=== PATIENT | male | born 1955 | race Caucasian/White ===

== ENCOUNTER → 2019-06-03 09:33 | Outpatient (CLI) | payer MEDICARE, BC, SELFPAY ==
--- NOTE | 2019-06-03 09:45 | MR_ITS ---
PROCEDURE: MR LUMBAR SPINE WO/W CON CLINICAL INDICATION: LOW BACK PAIN, IRON DEFICIENCY ANEMIA Low back pain with limited range of motion COMPARISON: No exams were available for comparison TECHNIQUE: Standard multiplanar multiecho sequences are performed without contrast. 3-D MIP and myelographic images are also rendered and reviewed FINDINGS: There is normal alignment. The spinal cord ends at the T12-L1 level. There is diffuse heterogeneous signal intensity the bony elements consistent with heterogeneous red marrow replacement. T12-L1: Unremarkable. L1-L2: Unremarkable. L2-L3: Unremarkable. L3-L4: Unremarkable. L4-5: Minimal bulging disc with mild facet ligamentum hypertrophy with mild bilateral lateral recess and foraminal narrowing. L5-S1: Degenerate disc disease with bulging disc along with mild facet and ligamentum hypertrophy. There is moderate to severe right foraminal narrowing and [id number] left foraminal narrowing. The decreased T1 signal is present involving the anterior and superior aspect of the L5 vertebral body. There is a slightly curvilinear area of decreased T2 signal transverse in nature along the anterior and superior aspect of L5 vertebral body suggesting a nondisplaced fracture. There is slight increased T2 signal in this region and there is very minimal decrease in height anteriorly of L5. No enhancing lesions are evident. IMPRESSION: 1. There is diffuse heterogeneous signal intensity of the lower thoracic spine, lumbar spine and sacrum and ilium. This may be related to heterogeneous red marrow replacement. Hematopoietic disorders could cause this finding. Please correlate with laboratory and clinical findings. 2. L4-5: Minimal bulging disc with mild facet ligamentum hypertrophy with mild bilateral lateral recess and foraminal narrowing. 3. L5-S1: Degenerate disc disease with bulging disc along with mild facet and ligamentum hypertrophy. There is moderate to severe right foraminal narrowing and [id number] left foraminal narrowing. The decreased T1 signal is present involving the anterior and superior aspect of the L5 vertebral body. 4. There is a slightly curvilinear area of decreased T2 signal transverse in nature along the anterior and superior aspect of L5 vertebral body suggesting a nondisplaced fracture. There is slight increased T2 signal in this region and there is very minimal decrease in height anteriorly of L5. 5. No extruded herniated disc or canal stenosis Dictated by: Dennis Doyle MD 06/04/2019 09:54 Electronically signed by Dennis Doyle MD in [place] 06/04/2019 09:54
== END ==
PROVIDERS: Visit Provider Internal Medicine Hematology & Oncology
DX: M54.5 Low back pain (principal); D50.9 Iron deficiency anemia, unspecified
CPT/HCPCS: 72158; 76376; A9576

== ENCOUNTER → 2019-11-11 14:08 | Outpatient (CLI) | payer MEDICARE, BC, SELFPAY ==
--- NOTE | 2019-11-11 14:16 | XR_ITS ---
PROCEDURE: XR HIP RT 2-3V W/PELVIS CLINICAL INDICATION: IRON DEFICIENCY ANEMIA, UNSPECIFIED COMPARISON: CR KUB KUB (SINGLE VIEW) from 10/19/2013 MR MR LUMBAR SPINE WO/W CON from 06/03/2019 FINDINGS: There is diffuse increased sclerosis of the left hemipelvis including the left aspect of the sacrum, ilium, ischemia M, superior and inferior pubic ramus, and the left proximal femur. This had a similar appearance on a prior KUB of 10/19/2013 and could be related to Paget's disease or stable prostate metastasis. No other significant anomalies are evident. Surgical clips are present along the left iliac fossa. No acute finding of the right hip. There is a small bone island in the right femoral head. There are multiple small calcific densities in the soft tissues of the right hip. IMPRESSION: No change diffuse sclerosis of the left hemipelvis and proximal femur which could be due to Paget's disease or prostate metastasis. Unremarkable right hip Dictated by: Dennis Doyle MD 11/11/2019 14:53 Dennis Doyle MD in [place] 11/11/2019 14:53
== END ==
PROVIDERS: PCP Family Medicine; Visit Provider Internal Medicine Hematology & Oncology
DX: M25.551 Pain in right hip (principal); R10.2 Pelvic and perineal pain; D50.9 Iron deficiency anemia, unspecified
CPT/HCPCS: 73502

== ENCOUNTER → 2019-12-08 08:22 | Outpatient (CLI) | payer MEDICARE, BC, SELFPAY ==
--- NOTE | 2019-12-08 08:25 | MR_ITS ---
PROCEDURE: MR LUMBAR SPINE WO/W CON CLINICAL INDICATION: BACK PAIN HX MULTIPLE MYELOMA. LBP WITH RT SIDED HIP PAIN. NUMBNESS ON ANTERIOR ASPECT OF THIGH TO KNEE. COMPARISON: MR MR LUMBAR SPINE WO/W CON from 06/03/2019 TECHNIQUE: Standard multiplanar multiecho sequences are performed without contrast. 3-D MIP and myelographic images are also rendered and reviewed FINDINGS: There is normal alignment. The spinal cord ends at the L1 level. There is diffuse heterogeneous bone marrow signal intensity of the lumbar and sacral spine similar to the previous exam consistent with heterogeneous red marrow replacement. This may be seen with Bruning proliferated processes. T11-T12: Mild degenerative disc disease with minimal bulging disc with mild facet hypertrophic change and mild bilateral lateral recess narrowing. T12-L1 and L1-L2 have an unremarkable appearance. L2-L3: Unremarkable. L3-L4: Unremarkable. L4-5: Mild concentric bulging disc with mild facet ligamentum hypertrophy and mild bilateral lateral recess and foraminal narrowing not significantly changed. L5-S1: Degenerative disc disease with bulging disc with facet and ligamentum hypertrophy with moderate right-sided foraminal narrowing and mild left-sided foraminal narrowing. This is not significantly changed. There is slight decrease in height of the L5 vertebral body. On the edge of the images there is an infiltrative process involving the S1-S2 vertebral segments with some mild expansion posteriorly which has developed since the previous exam. This is imaged only in the sagittal plane isointense on T1 and T2 worrisome for an infiltrative process such as multiple myeloma or plasmacytoma. In addition, there is decrease T1 and slight increased T2 signal involving the S1 segment centrally and on the right as well as diffuse heterogeneous signal intensity of the ilium on both sides consistent with multiple myeloma. The extent of the involvement of the pelvis is not adequately evaluated on this study. IMPRESSION: 1. L4-5: Mild concentric bulging disc with mild facet ligamentum hypertrophy and mild bilateral lateral recess and foraminal narrowing not significantly changed. 2. L5-S1: Degenerative disc disease with bulging disc with facet and ligamentum hypertrophy with moderate right-sided foraminal narrowing and mild left-sided foraminal narrowing. This is not significantly changed. There is slight decrease in height of the L5 vertebral body. 3. Extensive signal alteration with infiltration of the sacrum and ilium on both sides as described above consistent with multiple myeloma. This is incompletely imaged. CT of the pelvis may provide further evaluation for better bony delineation and the extent of involvement if clinically warranted. 4. Heterogeneous signal intensity of the lumbar spine which does not appear significantly changed and may be related to heterogeneous red marrow replacement which may be seen with myelo proliferative process.. Dictated by: Dennis Doyle MD 12/09/2019 08:51 Dennis Doyle MD in [place] 12/09/2019 08:51
== END ==
PROVIDERS: PCP Family Medicine; Visit Provider Internal Medicine Hematology & Oncology
DX: M54.5 Low back pain (principal); D50.9 Iron deficiency anemia, unspecified
CPT/HCPCS: 72158; 76376; A9576

== ENCOUNTER 2020-01-10 11:06 | Emergency (ER) | payer MEDICARE, BC, SELFPAY ==
[2020-01-10] VITALS (7 sets, daily range): BP systolic 91–131; BP diastolic 53–83; PULSE 52–73; RESP 18; TEMP 36.7; O2SAT 91–97; BMI 33.0
--- NOTE | 2020-01-10 11:21 | HMH.EDGENADL ---
ED Disposition Clinical Impression: Hip pain, right Disposition: Home, Self-Care Condition on Discharge: Fair Instructions: DI for Hip Pain Additional Instructions: CT of the lumbar spine as well as pelvis were done and the report showed the following diffuse bone marrow infiltration of the sacrum and right hemipelvis consistent with patient's history of multiple myeloma; 2. bilateral sacral insufficiency fractures MRI may confirm. 3. diffuse osteosclerosis of the left hemipelvis and femur consistent with Paget's disease there is also underlying bone marrow infiltration involving these areas. 4 no definite hip fracture there is some minimal cortical irregularity of the right femoral neck this could be related to vascular channel MRI may confirm 5.bulging disc at L4-L5 and L5-S1 heterogenous somewhat corrugated appearance of L5 suspicious for multiple myeloma involvement. spoke to Dr. Jorge Rojas radiation oncologist and he advised that you may be discharged home and Dr. Jorge Rojas will follow up with you. We are giving you copies of the CDs in both these cases Time of Disposition: 13:18 - Critical Care Critical Care Time: No Attestation: On , the high probability of a clinically significant, sudden or life threatening deterioration of the following system(s) required my full and direct attention, intervention and personal management. The time I documented below is in addition to time spent performing reported procedures but includes the following listed in this critical care notation. Medical Decision Making - Medical Records Medical records reviewed: Yes: I reviewed the patient's medical records. MR Comment: male here with a complaint that his right hip and back hurt his he has a history of multiple myeloma and he was advised by his primary care physician to come to the ER as they are concerned that this could be a pathological fracture. CT of the patient's lumbar spine as well as pelvis were done and the report showed the following diffuse bone marrow infiltration of the sacrum and right hemipelvis consistent with patient's history of multiple myeloma;. 2. bilateral sacral insufficiency fractures MRI may confirm. 3. diffuse osteosclerosis of the left hemipelvis and femur consistent with Paget's disease there is also underlying bone marrow infiltration involving these areas. 4 no definite hip fracture there is some minimal cortical irregularity of the right femoral neck this could be related to vascular channel MRI may confirm 5.bulging disc at L4-L5 and L5-S1 heterogenous somewhat corrugated appearance of L5 suspicious for multiple myeloma involvement. i spoke to Dr. Jorge Rojas patient's radiation oncologist and he advised that the patient may be discharged home and Dr. Jorge Rojas will follow up with him patient was given copies of the CDs in both these cases - Yony Inquiry Pt receiving controlled substance: No Yony was queried for this patient: No Vital Signs: 01/10/20 11:09 01/10/20 11:36 01/10/20 12:06 Temperature 98.1 F Temperature Source Oral Pulse Rate [Right Radial] 73 64 56 L Respiratory Rate 18 Blood Pressure [Right Arm] 131/83 91/58 L 93/53 L Blood Pressure Mean [Right Arm] 99 69 66 Blood Pressure Source [Right Arm] Automatic Cuff Automatic Cuff Automatic Cuff Blood Pressure Position [Right Arm] Sitting Sitting Sitting 02 Sat by Pulse Oximetry 95 93 L 91 L Oxygen Delivery Method Room Air Room Air Room Air 01/10/20 12:30 Temperature Temperature Source Pulse Rate [Right Radial] 52 L Respiratory Rate Blood Pressure [Right Arm] 92/57 L Blood Pressure Mean [Right Arm] 68 Blood Pressure Source [Right Arm] Automatic Cuff Blood Pressure Position [Right Arm] Sitting 02 Sat by Pulse Oximetry 91 L Oxygen Delivery Method Room Air Orders (Tests/Meds): ED MEDICATIONS Discontinued Medications Generic Name Dose Route Start Last Admin Trade Name Freq PRN Reason Stop Dose Adm
--- NOTE | 2020-01-10 11:23 | PC.NURSE ---
pt going to radiology
--- NOTE | 2020-01-10 11:24 | PC.NURSE ---
Pt to rad.
--- NOTE | 2020-01-10 11:28 | CT_ITS ---
PROCEDURE: CT PELVIS WO CON CLINICAL INDICATION: pain Multiple myeloma, popping right hip with low back pain COMPARISON: CR KUB KUB (SINGLE VIEW) from 10/19/[address] LUMBAR SPINE WO CON from 01/10/2020 TECHNIQUE: Axial images obtained with sagittal and coronal reformats. All CT scans at the facility use one or more dose reduction, viz: automated exposure control, ma/kV adjustment per patient size (including targeted exams where dose is matched to indication, i.e. head), or iterative reconstruction technique. FINDINGS: There is diffuse marrow infiltration the sacrum and right hemipelvis.. There is diffuse sclerotic appearance of the left hemipelvis with scattered areas of soft tissue infiltration as well.. There is an insufficiency fracture involving the anterior aspect of the sacrum on both sides. No definite femoral neck fracture. There is a small area of cortical irregularity involving the right femoral neck superiorly and laterally which may only be related to a vascular channel. If pain persists, would consider confirmation with MRI as the diffuse osteopenia makes interpretation somewhat difficult to evaluate for a hairline fracture. The there is diffuse osteosclerosis of the left femur with intramedullary areas of increased soft tissue density. This has a similar appearance involving the left ilium ischium and pubis. The osteosclerosis has been present since 10/19/2013. IMPRESSION: 1. Diffuse bone marrow infiltration of the sacrum and right hemipelvis consistent with patient's history of multiple myeloma. 2. Bilateral sacral insufficiency fractures. MRI may confirm. 3. Diffuse osteosclerosis of the left hemipelvis and femur consistent with Paget's disease. There is also underlying bone marrow infiltration involving of these areas 4. No definite hip fracture. There is some minimal cortical irregularity of the right femoral neck. This could be related to vascular channel. MRI may confirm if clinically desired. Dictated by: Dennis Doyle MD 01/10/2020 12:15 Dennis Doyle MD in [place] 01/10/2020 12:15
--- NOTE | 2020-01-10 11:28 | CT_ITS ---
PROCEDURE: CT LUMBAR SPINE WO CON CLINICAL HISTORY: pain Pain, multiple myeloma COMPARISON: No exams were available for comparison TECHNIQUE: Axial images obtained with sagittal and coronal reformats. All CT scans at the facility use one or more dose reduction, viz: automated exposure control, ma/kV adjustment per patient size (including targeted exams where dose is matched to indication, i.e. head), or iterative reconstruction technique. FINDINGS: There is mild diffuse osteopenia of the generalized bony structures. This may be seen with diffuse multiple myeloma. Bulging disc is present at L4-L5 with facet and ligamentum hypertrophy with bilateral lateral recess and foraminal narrowing. No acute fracture or dislocation of the lumbar spine. There is heterogeneous somewhat corrugated appearance of the L5 vertebral body with bulging disc. Bulging disc is also present at L5-S1 with bilateral foraminal narrowing. There is diffuse bone marrow infiltration of the sacrum and right hemipelvis and there are scattered sclerotic changes of the left hemipelvis. Nondisplaced sacral fracture involves the left aspect of the sacrum at S1. There also appears to be a nondisplaced right sacral fracture noted anteriorly consistent with bilateral insufficiency fractures of the sacrum. IMPRESSION: 1. Diffuse bone marrow infiltration of the sacrum and right hemipelvis consistent with bone marrow infiltration of multiple myeloma. There is also diffuse osteopenia of the lumbar spine which could be due to multiple myeloma involvement 2. Bilateral sacral insufficiency fractures. This may be confirmed with MRI. 3. Bulging disc at L4-5 and L5-S1. 4. Heterogeneous somewhat corrugated appearance of L5 suspicious for multiple myeloma involvement 5. 6. Bulging disc at L4-5 and L5-S1 Dictated by: Dennis Doyle MD 01/10/2020 12:07 Dennis Doyle MD in [place] 01/10/2020 12:07
--- NOTE | 2020-01-10 11:40 | PC.NURSE ---
pt returning to room
--- NOTE | 2020-01-10 12:34 | PC.NURSE ---
Calling [facility] per MD request for consult on patient
--- NOTE | 2020-01-10 12:52 | PC.NURSE ---
Spoke with Hemalatha at ID call center she is going to return a call to us after she gets in touch with a radiation oncologist.
--- NOTE | 2020-01-10 12:58 | PC.NURSE ---
Dr Perera at [facility] returned call
== END 2020-01-10 13:27 | disposition home or self-care (01) ==
PROVIDERS: Emergency Provider Emergency Medicine
DX: M25.551 Pain in right hip (principal); C90.00 Multiple myeloma not having achieved remission; K21.9 Gastro-esophageal reflux disease without esophagitis; I10 Essential (primary) hypertension; F12.10 Cannabis abuse, uncomplicated; I48.20 Chronic atrial fibrillation, unspecified; Z79.899 Other long term (current) drug therapy
CPT/HCPCS: 72131; 72192; 96372; 99283; J1030

== ENCOUNTER 2020-05-09 18:29 | Emergency (ER) | payer MEDICARE, BC, SELFPAY ==
[2020-05-09 18:35] VITALS: BP 147/81; PULSE 77; RESP 19; TEMP 36.9; O2SAT 98; BMI 33.0
--- NOTE | 2020-05-09 19:01 | XR_ITS ---
PROCEDURE: XR FOREARM LT 2V CLINICAL INDICATION: SWELLING Multiple myeloma, pain COMPARISON: No exams were available for comparison FINDINGS: No obvious fracture. There is mild generalized soft tissue swelling. At the olecranon there is some irregular calcification irregularity of the olecranon process. Lucency is noted within the olecranon process somewhat ill-defined multilocular measuring 2.5 cm. A lytic lesion is a consideration. History is given of multiple myeloma which could cause this finding. Mid distal aspect of the forearm are unremarkable. IMPRESSION: Ill-defined lytic changes involving the olecranon process with some cortical regularity proximally and with some faint soft tissue calcification. Differential diagnosis would include neoplasm such as metastatic disease/multiple myeloma, infection, or prominent sub cortical cystic changes with enthesophyte at the calcification of the triceps tendon. Dictated by: Dennis Doyle MD 05/10/2020 07:06 Dennis Doyle MD in [place] 05/10/2020 07:06
--- NOTE | 2020-05-09 19:04 | HMH.EDUTC ---
[facility] [place] Disposition Clinical Impression: Swelling of forearm Disposition: Home, Self-Care Condition on Discharge: Good Instructions: DI for Cellulitis -- Adult, Cellulitis, Cephalexin Additional Instructions: Warm compress to area every 3-4 hours Elevate when at rest to help with swelling You was given order for Venous Doppler make sure to keep appointment then follow up with your Family Doctor Return if needed Straight to ER if any life threatening symptoms Prescriptions: cephALEXin [cephALEXin 500mg capsule*] 500 mg PO Q6H 7 Days #28 cap Transmission Status: Received by [facility] Referrals: Karl Arevalo [Primary Care Provider] - As needed Time of Disposition: 19:41 Medical Decision Making - Yony Inquiry Pt receiving controlled substance: No Yony was queried for this patient: No Vital Signs: 05/09/20 18:35 05/09/20 19:53 Temperature 98.4 F 98.4 F Temperature Source Oral Pulse Rate 77 Pulse Rate [Right Brachial] 77 Respiratory Rate 19 19 Blood Pressure 147/81 H Blood Pressure [Right Arm] 147/81 H Blood Pressure Mean [Right Arm] 103 Blood Pressure Source [Right Arm] Automatic Cuff Blood Pressure Position [Right Arm] Sitting 02 Sat by Pulse Oximetry 98 Oxygen Delivery Method Room Air Orders (Tests/Meds): ORDERS Category Date Time Status Forearm XR left 2 views [XR forearm LT 2V] Stat Exams 05/09/20 19:01 Taken - Radiology Data #1 Image(s): Forearm Image Reviewed: Yes I reviewed the patient's radiology image Preliminary Findings: No Fracture Seen [facility] HPI - General Stated complaint: Left arm swwollen.pain Time Seen by Provider: 05/09/20 19:04 Mode of Arrival: Ambulatory Source of Information: Patient Limitations: No Limitations Description of Symptoms (Recalled from Triage Doc. by RN): PATIENT C/O SWELLING AND BRUISING TO LEFT ARM SINCE FRIDAY MORNING. NO KNOWN INJURY HEENT Symptoms (Recalled from RN notes): No Resp Symptoms (Recalled from RN notes): No Skin Symptoms (Recalled from RN notes): No MS Symptoms (Recalled from RN notes): Yes Functional Status (Recalled from RN notes): WNL - History of Present Illness Provider Complaint: Patient states that he has cancer and hasnt done much through the winter and it was pretty over the weekend and he was out working alot States that he noticed on Friday that his left forearm from elbow to wrist was swollen and looked like he had a bruise on his forearm but did not remember hurting his arm. - Related Data Home Medications Medication Instructions Recorded Confirmed atorvastatin 10 mg tablet 10 mg PO DAILY 10/29/17 01/10/20 flurbiprofen 100 mg tablet 100 mg PO DAILY tab 10/29/17 01/10/20 hydralazine 50 mg tablet 50 mg PO BID tab 10/29/17 01/10/20 hydroxychloroquine 200 mg tablet 200 mg PO BID tab 10/29/17 01/10/20 metoprolol succinate 25 mg 25 mg PO DAILY 10/29/17 12/18/18 tablet,extended release 24 hr nifedipine 90 mg tablet,extended 90 mg PO DAILY 10/29/17 01/10/20 release sulfasalazine 500 mg tablet 1 g PO BID tab 10/29/17 01/10/20 Ferrous Sulfate [Ferrous Sulfate 325 mg PO DAILY 12/18/18 01/10/20 325mg Tablet] Omeprazole [Omeprazole 20mg 20 mg PO DAILY 12/18/18 01/10/20 Capsule] Valsartan [Valsartan 320mg 160 mg PO DAILY 12/18/18 01/10/20 Tablets] Oxycodone HCl [Oxycodone (IR) 10mg 1 - 2 tab PO Q4HP PRN 01/10/20 01/10/20 Tab] diazePAM [Diazepam 10 mg tablet] 10 mg PO TID PRN 01/10/20 01/10/20 Previous Rx's Medication Instructions Recorded Albuterol Sulfate [Albuterol HFA 2 puffs IH Q6HP PRN #1 inh 12/18/18 Inhaler] cephALEXin [cephALEXin 500mg 500 mg PO Q6H 7 Days #28 cap 05/09/20 capsule*] Allergies Allergy/AdvReac Type Severity Reaction Status Date / Time No Known Allergies Allergy Verified 12/18/18 18:41 - Worker's Comp Is this a Worker's Comp case?: No [facility] History - Hepatitis A Screen Drug use history?: No High risk sexual beh
[2020-05-09 19:53] VITALS: BP 147/81; PULSE 77; RESP 19; TEMP 36.9; O2SAT 98
== END 2020-05-09 19:56 | disposition home or self-care (01) ==
PROVIDERS: Emergency Provider Nurse Practitioner; PCP General Practice
DX: M79.89 Other specified soft tissue disorders (principal); C90.00 Multiple myeloma not having achieved remission; F41.9 Anxiety disorder, unspecified; I10 Essential (primary) hypertension; E78.5 Hyperlipidemia, unspecified; I48.91 Unspecified atrial fibrillation; K21.9 Gastro-esophageal reflux disease without esophagitis; Z79.899 Other long term (current) drug therapy
CPT/HCPCS: G0463; 73090; 99202

== ENCOUNTER → 2020-05-10 10:36 | Outpatient (CLI) | payer MEDICARE, BC, SELFPAY ==
--- NOTE | 2020-05-10 10:40 | CA_ITS ---
APPROVED REPORT Foot Caster: Viola Flores RCS, RVS Indications Upper Extremity Swelling: Left S/P J&J covid vaccine 1week ago. Past History Multiple Myeloma Vein Imaging IJV (L): Normal phasic flow is seen. Normal flow, augmentation and compression is seen. No evidence of Deep Vein Thrombosis. No abnormalities are demonstrated. SCV (L): Normal phasic flow is seen. Normal flow, augmentation and compression is seen. No evidence of Deep Vein Thrombosis. No abnormalities are demonstrated. Axillary (L): Normal phasic flow is seen. Normal flow, augmentation and compression is seen. No evidence of Deep Vein Thrombosis. No abnormalities are demonstrated. Brachial (L): Normal phasic flow is seen. Normal flow, augmentation and compression is seen. No evidence of Deep Vein Thrombosis. No abnormalities are demonstrated. Basilic (L): Normal phasic flow is seen. Normal flow, augmentation and compression is seen. No evidence of Deep Vein Thrombosis. No abnormalities are demonstrated. Cephalic (L): Normal phasic flow is seen. Normal flow, augmentation and compression is seen. No evidence of Deep Vein Thrombosis. No abnormalities are demonstrated. Radial (L): Normal phasic flow is seen. Normal flow, augmentation and compression is seen. No evidence of Deep Vein Thrombosis. No abnormalities are demonstrated. Ulnar (L): Normal phasic flow is seen. Normal flow, augmentation and compression is seen. No evidence of Deep Vein Thrombosis. No abnormalities are demonstrated. Findings Duplex evaluation of the left upper extremity demonstrates no evidence of DVT. Conclusion Duplex evaluation of the left upper extremity demonstrates no evidence of DVT. Electronically signed by : Dennis Doyle MD 05/10/2020 19:23:36
== END ==
PROVIDERS: PCP General Practice; Visit Provider Nurse Practitioner
DX: M79.622 Pain in left upper arm (principal)
CPT/HCPCS: 93971

== ENCOUNTER 2021-02-06 23:59 | Emergency (ER) | payer MEDICARE, BC, SELFPAY ==
[2021-02-07] VITALS (9 sets, daily range): BP systolic 167–195; BP diastolic 83–118; PULSE 60–67; RESP 16–24; TEMP 35.6–35.8; O2SAT 93–96; BMI 32.1
--- NOTE | 2021-02-07 00:18 | ECG_ITS ---
APPROVED REPORT Exam: Resting ECG HR:59 bpm ECG Measurements Heart Rate 59 AXES LA 178 P 72 QRSd 114 QRS 57 QT 512 T 46 QTc 506 Conclusion Sinus bradycardia Incomplete right bundle branch block Nonspecific ST and T wave abnormality Prolonged QT Abnormal ECG Electronically signed by : Mookie Kim MD 02/07/2021 21:13:18
[2021-02-07 00:29] LABS: POC Glucose,Bedside 203 (70-110)
--- NOTE | 2021-02-07 00:43 | XR_ITS ---
PROCEDURE INFORMATION: Exam: XR Pelvis Exam date and time: 02/07/2021 12:43 AM Age: 66 years old Clinical indication: Pelvic pain; Additional info: Fall TECHNIQUE: Imaging protocol: XR pelvis. Views: 1 or 2 view. COMPARISON: CT PELVIS WO CON 01/10/2020 11:32 AM FINDINGS: Tubes, catheters and devices: Tomas catheter projects over the pelvis. Bones/joints: Abnormal areas of lucency within the right hemipelvis, similar to prior study, compatible with patient's history of multiple myeloma. No acute fracture or dislocation. Soft tissues: Unremarkable. Intraperitoneal space: Abnormal heterogeneous sclerosis of the left hemipelvis, with thickened trabecula, likely secondary to Paget's disease, similar to prior study. IMPRESSION: No acute fracture or dislocation.
--- NOTE | 2021-02-07 00:43 | CT_ITS ---
PROCEDURE INFORMATION: Exam: CT Abdomen And Pelvis With Contrast Exam date and time: 02/07/2021 12:43 AM Age: 66 years old Clinical indication: Vomiting; Additional info: Vomitting TECHNIQUE: Imaging protocol: Computed tomography of the abdomen and pelvis with contrast. Radiation optimization: All CT scans at this facility use at least one of these dose optimization techniques: automated exposure control; mA and/or kV adjustment per patient size (includes targeted exams where dose is matched to clinical indication); or iterative reconstruction. Contrast material: ISOVUE; Contrast volume: 75 ml; Contrast route: IV; COMPARISON: CT PELVIS WO CON 01/10/2020 11:32 AM FINDINGS: Tubes, catheters and devices: Partially visualized central venous catheter tip in the right atrium. Lungs: Minimal posterior dependent atelectasis or scarring. Heart: Atherosclerotic calcification of the visualized right coronary artery and distal thoracic aorta. Liver: Normal. Gallbladder and bile ducts: Normal. Pancreas: Normal. Spleen: Normal. Adrenal glands: Normal. No mass. Kidneys and ureters: Normal. Stomach and bowel: Surgical changes of prior partial sigmoid colon resection. Appendix: Appendix normal. Intraperitoneal space: Unremarkable. No free air. No significant fluid collection. Vasculature: Atherosclerotic disease of the abdominal aorta and iliac arteries. Lymph nodes: Unremarkable. No enlarged lymph nodes. Urinary bladder: Urinary bladder partially decompressed by Tomas catheter. Reproductive: Unremarkable as visualized. Bones/joints: Thickened trabecula within the pelvis, with areas of increased sclerosis, likely secondary to Paget's disease. Abnormal areas of lucency within the right sacrum and right hemipelvis, similar to prior study, compatible with patient's history of multiple myeloma. Soft tissues: Small fat containing umbilical hernia. IMPRESSION: No acute abdominal or pelvic abnormality.
--- NOTE | 2021-02-07 00:43 | CT_ITS ---
PROCEDURE INFORMATION: Exam: CT Cervical Spine Without Contrast Exam date and time: 02/07/2021 12:43 AM Age: 66 years old Clinical indication: Neck pain; Additional info: AMS fall TECHNIQUE: Imaging protocol: Computed tomography images of the cervical spine without contrast. Radiation optimization: All CT scans at this facility use at least one of these dose optimization techniques: automated exposure control; mA and/or kV adjustment per patient size (includes targeted exams where dose is matched to clinical indication); or iterative reconstruction. COMPARISON: CR XR CHEST PORTABLE 02/07/2021 1:33 AM FINDINGS: Tubes, catheters and devices: Right IJ catheter is noted. Bones/joints: No acute fracture. Normal alignment. Discs/Spinal canal/Neural foramina: No significant disc protrusion. No severe spinal canal stenosis. No significant neural foraminal narrowing. Lungs: Lung apices are normal. Soft tissues: Unremarkable. IMPRESSION: No acute fracture or malalignment of the cervical spine.
--- NOTE | 2021-02-07 00:43 | XR_ITS ---
PROCEDURE INFORMATION: Exam: XR Chest Exam date and time: 02/07/2021 12:43 AM Age: 66 years old Clinical indication: Other: Fall TECHNIQUE: Imaging protocol: XR of the chest. Views: 1 view. COMPARISON: CR XR CHEST 2V 03/31/2019 5:03 PM FINDINGS: Tubes, catheters and devices: Right internal jugular dual lumen central venous catheter tip in the lower superior vena cava. Lungs: Mild bibasilar ground-glass and linear opacities, likely areas of atelectasis and pneumonitis. Pleural spaces: Unremarkable. No pleural effusion. No pneumothorax. Heart/Mediastinum: Normal. Vasculature: Atherosclerotic disease of the thoracic aorta. Bones/joints: No acute abnormality. IMPRESSION: Mild bibasilar ground-glass and linear opacities, likely areas of atelectasis and pneumonitis.
[2021-02-07 00:52] LABS: Coronavirus 19, PCR Not Detected (NotDetected); Influenza A, PCR Not Detected (NotDetected); Influenza B, PCR Not Detected (NotDetected); Microscopic, Urine URINE MICROSCOPIC (MICROSCOPIC)
[2021-02-07 00:59] LABS: Appearance,Urine CLEAR (Clear); Basophils # 0.6 K/mm3 (0-0.2); Basophils % 1.2 % (0.1-2.0); Bilirubin,Urine Negative (Negative); Blood, Urine 1+ (Negative); Color,Urine YELLOW (Yellow); Eosinophils # 0.1 K/mm3 (0.0-0.4); Eosinophils % 0.2 % (0.1-12.0); Glucose,Urine (UA) Negative (Negative); Hematocrit 42.1 % (42.0-52.0); Ketones,Urine Negative (Negative); Leukocyte Esterase,Urine Negative (Negative); Lymphocytes # 1.5 K/mm3 (0.7-4.5); Lymphocytes % 3.1 % (10-50); Mean Corpuscular HGB Conc 33.2 g/dL (31.8-35.4); Mean Corpuscular Hemoglobin 30.2 pg (27.0-31.2); Mean Corpuscular Volume 91.1 fl (80-94); Mean Platelet Volume 8.1 fl (7.4-10.4); Monocytes # 3.1 K/mm3 (0.1-1.0); Monocytes % 6.5 % (1.7-9.3); Neutrophils # 42.8 K/mm3 (1.8-7.8); Nitrate,Urine Negative (Negative); PH,Urine 7.5 (5.0-8.5); Platelet Count 139 K/mm3 (142-424); Protein,Urine 2+ (Negative); Red Blood Count 4.63 M/mm3 (4.60-6.20); Red Cell Distribution Width 15.9 % (11.5-17.5); Urobilinogen,Urine 0.2 EU/dl (0.2)
[2021-02-07 01:03] LABS: MANUAL DIFFERENTIAL MANUAL DIFFERENTIAL (MANUAL DIFF)
--- NOTE | 2021-02-07 01:03 | PC.NURSE ---
eden notified of crotcal WBC of 48.0
[2021-02-07 01:04] LABS: Lactic Acid 1.8 mmol/L (0.7-2.1)
[2021-02-07 01:04] LABS: Alanine Aminotransferase 19 U/L (12-78); Albumin Level 4.7 g/dl (3.5-5.0); Albumin/Globulin Ratio 1.9 (1.1-1.8); Alkaline Phosphatase 190 U/L (38-126); Amylase 140 U/L (30-110); Anion Gap 12.4 mEq/L (5-15); Aspartate Amino Transferase 30 U/L (17-59); Bilirubin,Total 1.5 mg/dl (0.2-1.3); Blood Urea Nitrogen 5 mg/dl (9-20); Calcium 9.3 mg/dl (8.4-10.2); Carbon Dioxide 30 mmol/L (22.0-30.0); Chloride 98 mmol/L (98-107); Creatinine Clearance Estimated 110 mL/min (50-200); Estimated Glomerular Filt Rate 97 ml/min (>60); GFR (African American) 118 ML/MIN (>60); Globulin 2.5 g/dL (1.3-3.2); Glucose 180 mg/dl (74-100); Lipase 29 U/L (23-300); Sodium 138 mmol/L (136-145); Total Protein,Serum 7.2 g/dl (6.3-8.2)
[2021-02-07 01:10] LABS: C-Reactive Protein 29.6 mg/L (0-4)
[2021-02-07 01:12] LABS: Potassium 2.4 mmoL/L (3.5-5.1)
--- NOTE | 2021-02-07 01:12 | PC.NURSE ---
Addendum entered by Ana Louie RN 02/07/21 01:13: Potassium leve is 2.4 Original Note: Critical potassium called of 2.1. notified
[2021-02-07 01:23] LABS: Procalcitonin 0.319 ng/mL (0.0-2.0)
[2021-02-07 01:27] LABS: Troponin I < 0.01 ng/ml (0.00-0.034)
[2021-02-07 01:35] LABS: Bacteria,Urine Trace /lpf; Squamous Epithelial Cell,Urine Occasional #/hpf (0-5)
[2021-02-07 02:00] LABS: Magnesium 1.8 mg/dl (1.6-2.3)
[2021-02-07 02:26] LABS: Erythrocyte Sedimentation Rate 9 mm/hr (0-20)
[2021-02-07 02:29] LABS: Lymphocytes % 7 % (10-50); Monocytes % 2 % (2-9); Neutrophils % 88 % (42-76); Total Cells Counted 100
[2021-02-07 02:30] LABS: Acanthocytes 1+; Platelet Estimate Normal
--- NOTE | 2021-02-07 02:38 | CT_ITS ---
PROCEDURE INFORMATION: Exam: CT Head Without Contrast Exam date and time: 02/07/2021 2:38 AM Age: 66 years old Clinical indication: Injury or trauma; Blunt trauma (contusions or hematomas); Patient HX: AMS, fall. Scan repeated due to motion on 1st scan TECHNIQUE: Imaging protocol: Computed tomography of the head without contrast. Radiation optimization: All CT scans at this facility use at least one of these dose optimization techniques: automated exposure control; mA and/or kV adjustment per patient size (includes targeted exams where dose is matched to clinical indication); or iterative reconstruction. COMPARISON: CT CERVICAL SPINE WO CON 02/07/2021 1:43 AM FINDINGS: Brain: 1.7 cm of left midline shift. Large right-sided subdural hematoma measuring up to 2 cm in thickness. There is significant local sulcal effacement. Right suprasellar cistern is effaced. Cerebral ventricles: The right lateral ventricle and 3rd ventricle are effaced. The temporal horns are dilated consistent with CSF obstruction at the level of the 3rd ventricle. Paranasal sinuses: Visualized sinuses are unremarkable. No fluid levels. Mastoid air cells: Visualized mastoid air cells are well aerated. Bones/joints: Unremarkable. No acute fracture. Soft tissues: Unremarkable. IMPRESSION: Large right-sided subdural hematoma causing CSF obstruction at the level of the 3rd ventricle, 1.7 cm of left midline shift, and right uncal herniation.
--- NOTE | 2021-02-07 03:28 | [facility].EDFALL ---
ED Disposition Clinical Impression: Subdural hematoma, acute, Hypokalemia Multiple myeloma Qualifiers: Multiple myeloma remission status: unspecified Qualified Code(s): C90.00 - Multiple myeloma not having achieved remission Disposition: Xfer Short-Term Hosp Condition on Discharge: Critical Referrals: Karl Arevalo [Primary Care Provider] - - Critical Care Critical Care Time: Yes Attestation: On 02/06/21, the high probability of a clinically significant, sudden or life threatening deterioration of the following system(s) required my full and direct attention, intervention and personal management. The time I documented below is in addition to time spent performing reported procedures but includes the following listed in this critical care notation. Total Critical Care Time: 60 Vital system(s) involved:: Central Nervous System My critical care processes included: Assessment & monitoring of V/S, Initial and Re-exams, Data Review/Interpretation, Coordinating Care, Medication Orders and management, Documentation Medical Decision Making - Medical Records Medical records reviewed: Yes: I reviewed the patient's medical records. - Yony Inquiry Pt receiving controlled substance: No Vital Signs: 02/07/21 00:06 02/07/21 01:02 02/07/21 02:19 Temperature 96.2 F L 96.0 F L Temperature Source Rectal Rectal Pulse Rate 66 60 Pulse Rate [Right] 62 Respiratory Rate 16 24 24 Blood Pressure 167/118 H 180/89 H Blood Pressure [Right Arm] 178/83 H Blood Pressure Mean 119 123 Blood Pressure Mean [Right Arm] 114 02 Sat by Pulse Oximetry 95 94 L 93 L Oxygen Flow Rate (LPM) 02/07/21 02:31 02/07/21 03:22 Temperature 96.5 F L Temperature Source Rectal Pulse Rate 62 Pulse Rate [Right] Respiratory Rate Blood Pressure 175/90 H 172/88 H Blood Pressure [Right Arm] Blood Pressure Mean 118 Blood Pressure Mean [Right Arm] 02 Sat by Pulse Oximetry 96 Oxygen Flow Rate (LPM) 2 - Lab Data Lab results reviewed: Yes: I reviewed the patient's lab results. Lab Results 02/07/21 00:15: POC Glucose 203 H 02/07/21 00:27: WBC 48.0 H*, RBC 4.63, Hgb 14.0 L, Hct 42.1, MCV 91.1, MCH 30.2, MCHC 33.2, RDW 15.9, Plt Count 139 L, MPV 8.1, Neut % (Auto) 89.0 H, Lymph % (Auto) 3.1 L, Vance % (Auto) 6.5, Eos % (Auto) 0.2, Baso % (Auto) 1.2, Neut # (Auto) 42.8 H, Lymph # (Auto) 1.5, Vance # (Auto) 3.1 H, Eos # (Auto) 0.1, Baso # (Auto) 0.6 H, Total Counted 100, Neutrophils % (Manual) 88 H, Lymphocytes % (Manual) 7 L, Monocytes % (Manual) 2, Basophils % (Manual) 3.0 H, Platelet Estimate Normal, RBC Morphology Not Reportable, Acanthocytes (Spur) 1+, ESR 9 02/07/21 00:27: Sodium 138, Potassium 2.4 L*, Chloride 98, Carbon Dioxide 30, Anion Gap 12.4, BUN 5 L, Creatinine 0.80, Estimated Creat Clear 110, Estimated GFR 97, Est GFR ( Amer) 118, Glucose 180 H, Calcium 9.3, Total Bilirubin 1.5 H, AST 30, ALT 19, Alkaline Phosphatase 190 H, Troponin I < 0.01, C-Reactive Protein 29.6 H, Total Protein 7.2, Albumin 4.7, Globulin 2.5, Albumin/Globulin Ratio 1.9 H, Amylase 140 H, Procalcitonin 0.319 02/07/21 00:27: Urine Color Yellow, Urine Appearance Clear, Urine pH 7.5, Ur Specific [place] 1.020, Urine Protein 2+, Urine Glucose (UA) Negative, Urine Ketones Negative, Urine Blood 1+, Urine Nitrate Negative, Urine Bilirubin Negative, Urine Urobilinogen 0.2, Ur Leukocyte Esterase Negative, Urine RBC 3-5, Ur Squamous Epith Cells Occasional, Urine Bacteria Trace 02/07/21 00:27: Lipase 29 02/07/21 00:27: SARS-CoV-2 (PCR) Not detected, Influenza A Untype (PCR) Not detected, Influenza Type B (PCR) Not detected 02/07/21 00:27: Magnesium 1.8 02/07/21 00:50: Lactate 1.8 Result diagrams: 02/07/21 00:27 12 00:27 Orders (Tests/Meds): ED MEDICATIONS Generic Name Dose Route Start Last Admin Trade Name Freq PRN Reason Stop Dose Admin Lactated Ringer's 1,000 mls @ 999 mls/hr 02/07/21 01:00 02/07/21 01:16 Lactated Ringer's 1000 Ml
--- NOTE | 2021-02-07 03:35 | PC.NURSE ---
eden on phone with [facility] @ this time
--- NOTE | 2021-02-07 03:35 | PC.NURSE ---
Addendum entered by Brandon Coleman RN 02/07/21 04:08: Pt is able to follow simple commands of squeezing hands and wiggling toes. Nystagmus to eyes observed. MD updated family on plan of care. Original Note: GCS of 7 at this time. Pupils are equal but extremely sluggish to light. Pt has become more somnolent but is maintaining his airway at this time. is on the phone with [facility] currently. Pam has been contacted and they give a 12 minute ETA from lift off.
--- NOTE | 2021-02-07 03:37 | PC.NURSE ---
Pt accepted by MD Dasha at ED. House notified of incoming helicopter.
--- NOTE | 2021-02-07 04:07 | PC.NURSE ---
Pam in pt room and receiving report from MEET Irvin at this time. Pt's and daughter at bedside.
--- NOTE | 2021-02-07 04:18 | PC.NURSE ---
GCS of 9 at this time
[2021-02-09 01:04] LABS: Peripheral Smear Review Scanned Result
== END 2021-02-07 04:26 | disposition short-term general hospital (02) ==
PROVIDERS: Emergency Provider Emergency Medicine; PCP General Practice
DX: S06.5X9A Traumatic subdural hemorrhage with loss of consciousness of unspecified duration, initial encounter (principal); C90.00 Multiple myeloma not having achieved remission; E87.6 Hypokalemia; W18.39XA Other fall on same level, initial encounter; Y92.019 Unspecified place in single-family (private) house as the place of occurrence of the external cause; I48.91 Unspecified atrial fibrillation; K21.9 Gastro-esophageal reflux disease without esophagitis; I10 Essential (primary) hypertension; Z79.899 Other long term (current) drug therapy
CPT/HCPCS: 70450; 71045; 72125; 72170; 74177; 80053; 81001; 82150; 82962; 83605; 83690; 83735; 84145; 84484; 85007; 85025; 85651; 86140; 87040; 93005; 96365; 96367; 96375; 99285; C9803; J2405; Q9967; U0003; U0005